=== PATIENT | female | born 2000 | race Caucasian/White ===

== ENCOUNTER 2023-07-08 12:19 | Emergency (ER) | payer OTHER, SELFPAY ==
[2023-07-08 12:31] VITALS: BP 117/54
[2023-07-08] MEDS: OMNIPAQUE 50 ML PO (12:46)
[2023-07-08 12:50] LABS: Urine Albumin Negative (Neg - Trace); Urine Bilirubin Negative (Negative); Urine Character Clear (Clear); Urine Color Yellow; Urine Glucose Negative (Negative); Urine Ketone Negative (Negative); Urine Leukocyte Negative (Negative); Urine Nitrite Negative (Negative); Urine Occult Blood Negative (Negative); Urine Specific Gravity 1.015 (<1.030); Urine Urobilinogen Negative (Neg - 1+)
[2023-07-08 12:55] LABS: % Basophils 0.3 % (0-2); % Eosinophils 0.5 % (0-6); % Immature Granulocytes 0.3 % (0-0.5); % Lymphocytes 3.9 % (20.5-51.1); % Monocytes 3.6 % (1.7-9.3); % Neutrophils 91.4 % (42.2-75.2); Absolute Eosinophils 0.1 10^3/uL (0-0.7); Absolute Lymphocytes 0.5 10^3/uL (1.2-3.4); Absolute Monocytes 0.4 10^3/uL (0.1-0.6); Absolute Neutrophils 10.6 10^3/uL (1.4-6.5); Hematocrit 39.9 % (37.0-47.0); Hemoglobin 13.2 g/dL (12.0-16.0); Mean Corp Hgb Conc. 33.1 g/dL (33.0-37.0); Mean Corpuscular Hgb 30.8 pg (27.0-31.0); Mean Platelet Volume 9.3 fL (7.4-10.4); Nucleated Red Blood Cells % 0 %; Platelet Count 267 10^3/uL (130-400); Red Blood Cell Count 4.29 10^6/uL (4.20-5.40); Red Cell Dist. Width 11.9 % (11.5-14.5); White Blood Cell Count 11.6 10^3/uL (4.8-10.8)
[2023-07-08 13:00] LABS: HCG, Serum Qualitative Screen Negative
[2023-07-08 13:07] LABS: ALT (SGPT) 19 U/L (0-35); AST (SGOT) 25 U/L (14-36); Albumin 4.4 g/dl (3.5-5.0); Alkaline Phosphatase 56 U/L (38-126); Blood Urea Nitrogen 15 mg/dl (7-17); Calcium 9.5 mg/dl (8.4-10.2); Carbon Dioxide 22 mmol/L (22-30); Chloride 103 mmol/L (98-107); Glucose 97 mg/dl (70-99); Potassium 4.4 mmol/L (3.5-5.1); Sodium 132 mmol/L (135-145); Total Bilirubin 0.6 mg/dl (0.2-1.3); Total Protein 7.3 g/dl (6.3-8.2); eGFR > 60.00
--- NOTE | 2023-07-08 13:36 | ED.GENMED ---
History of Present Illness
<Pham Ken PA-C - Last Filed: 07/08/23 17:51>
General
Chief Complaint: Abdominal Pain
Source: patient and family
Exam Limitations: none
Time Seen by Provider: 07/08/23 13:27
Nursing documentation reviewed up to this point in time: agreed with
Travel History
Have you had any contact with someone who has COVID-19?: No
Do you have any symptoms of coronavirus? Fever > 100 degrees, chills, cough, shortness of breath, sore throat, loss of taste or smell, muscle aches, or headache?: No
History of Present Illness
History of Present Illness:
Patient is a 23-year-old female with no significant past medical history presenting to the emergency department with mom for evaluation of abdominal pain. Patient states abdominal pain started yesterday afternoon and was located just superior to
umbilicus. She states pain is now located more on the right side with some radiation around to the back. She states pain is severe, sharp, and constant. She endorses anorexia, diarrhea, nausea, and multiple episodes of vomiting today. She
reports subjective fever. She denies any urinary symptoms. No chest pain or shortness of breath. She denies any recent travel. No recent antibiotic use or hospitalization. She denies any recent seafood
Patient's last menstrual period was about 3 weeks ago. Patient has no history of abdominal surgeries.
Past History
<Pham Ken PA-C - Last Filed: 07/08/23 17:51>
Past History
ED Past Medical History: None
ED Past Surgical History: None
Social History
Tobacco: Non-smoker
Drug: None
Phy Exam
<Pham Ken PA-C - Last Filed: 07/08/23 17:51>
Physical Exam
Physical Exam:
General: Moderately uncomfortable due to pain, vomiting on initial examination
Vitals: Vital signs are stable, afebrile
HEENT: Atraumatic, normocephalic; pupils equal round and reactive light bilaterally, protecting airway, uvula midline
Neck: appears supple, trachea mid
CV: Regular rate and rhythm, heart sounds normal, no evidence of cyanosis
Resp: No evidence of respiratory distress, lungs clear bilaterally
Abd: Soft, moderately tender in right lower/right mid abdomen, some mild tenderness in epigastric region, non-distended; no CVA tenderness
Extremities: No deformities, no evidence of cyanosis or edema; DP pulses palpable and equal bilaterally
Neuro: alert and oriented; grossly intact
Psych: Normal affect
Skin: Intact, no rashes
Course
<Pham Ken PA-C - Last Filed: 07/08/23 17:51>
Orders/Labs/Results
Orders:
Orders
07/08/23 12:33
Test Result ONCE
07/08/23 12:42
Complete Blood Count/With Diff Urgent
Comprehensive Metabolic Panel Urgent
HCG, Serum Qualitative Screen Urgent
Lipase Urgent
Urinalysis Reflex To Culture Urgent
Date Specimen was Collected: 07/08/23
Time Specimen was Collected: 12:32
07/08/23 12:44
Iohexol [Omnipaque] 50 ml .ROUTE .[facility]
07/08/23 12:46
Iohexol [Omnipaque] See Protocol PO NOW STA
07/08/23 12:48
CT Abd/pel W Iv And Oral Contr Urgent
Comment:
Reason For Exam: RLQ pain
07/08/23 13:35
0.9% Sodium Chloride 1000 ml [Nss] 1,000 ml IV BOLUS
Ketorolac [Toradol] 15 mg IV NOW STA
Ondansetron Injectable [Zofran] 4 mg IV NOW STA
07/08/23 16:15
US Pelvis W Transvag Combined Urgent
Reason For Exam: Right lower abdominal pain; r/o torsion
Abnormal Lab Results
07/08/23
12:42
WBC 11.6 H 10^3/uL
(4.8-10.8)
Absolute Neuts (auto) 10.6 H 10^3/uL
(1.4-6.5)
Absolute Lymphs (auto) 0.5 L 10^3/uL
(1.2-3.4)
Neutrophils % 91.4 H %
(42.2-75.2)
Lymphocytes % 3.9 L %
(20.5-51.1)
Sodium 132 L mmol/L
(135-145)
07/08/23 12:42
07/08/23 12:42
Vital Signs
Initial and Last Documented VS:
Initial Vital Signs
Temp Pulse Resp BP Pulse Ox
98.2 F 87 16 117/54 98
07/08/23 12:31 07/08/23 12:31 07/08/23 12:31 07/08/23 12:31 07/08/23 12:31
Last Documented Vital Signs
Temp Pulse Resp BP Pulse Ox
98.2 F 78 16 92/59 98
07/08/23 12:31 07/08/23 17:43 07/08/23 12:31 07/08/23 17:43 07/08/23 12:31
<Belia Cline MD - Last Filed: 07/08/23 17:35>
Orders/Labs/Results
Orders:
Orders
07/08/23 12:33
Test Result ONCE
07/08/23 12:42
Complete Blood Count/With Diff Urgent
Comprehensive Metabolic Panel Urgent
HCG, Serum Qualitative Screen Urgent
Lipase Urgent
Urinalysis Reflex To Culture Urgent
Date Specimen was Collected: 07/08/23
Time Specimen was Collected: 12:32
07/08/23 12:44
Iohexol [Omnipaque] 50 ml .ROUTE .[facility]
07/08/23 12:46
Iohexol [Omnipaque] See Protocol PO NOW STA
07/08/23 12:48
CT Abd/pel W Iv And Oral Contr Urgent
Comment:
Reason For Exam: RLQ pain
07/08/23 13:35
0.9% Sodium Chloride 1000 ml [Nss] 1,000 ml IV BOLUS
Ketorolac [Toradol] 15 mg IV NOW STA
Ondansetron Injectable [Zofran] 4 mg IV NOW STA
07/08/23 16:15
US Pelvis W Transvag Combined Urgent
Reason For Exam: Right lower abdominal pain; r/o torsion
Abnormal Lab Results
07/08/23
12:42
WBC 11.6 H 10^3/uL
(4.8-10.8)
Absolute Neuts (auto) 10.6 H 10^3/uL
(1.4-6.5)
Absolute Lymphs (auto) 0.5 L 10^3/uL
(1.2-3.4)
Neutrophils % 91.4 H %
(42.2-75.2)
Lymphocytes % 3.9 L %
(20.5-51.1)
Sodium 132 L mmol/L
(135-145)
07/08/23 12:42
07/08/23 12:42
Vital Signs
Initial and Last Documented VS:
Initial Vital Signs
Temp Pulse Resp BP Pulse Ox
98.2 F 87 16 117/54 98
07/08/23 12:31 07/08/23 12:31 07/08/23 12:31 07/08/23 12:31 07/08/23 12:31
Last Documented Vital Signs
Temp Pulse Resp BP Pulse Ox
98.2 F 78 16 92/59 98
07/08/23 12:31 07/08/23 17:43 07/08/23 12:31 07/08/23 17:43 07/08/23 12:31
<Pham Ken PA-C - Last Filed: 07/08/23 17:51>
MDM/Problems Addressed
Differential Diagnosis Includes:
Not limited to: Gastroenteritis, appendicitis, ovarian cyst, ovarian torsion, cholecystitis, biliary colic, kidney stone, UTI
MDM/Problems Addressed:
Patient is a 23-year-old female presenting for evaluation of abdominal pain with associated nausea, vomiting, diarrhea, anorexia. Symptoms started yesterday been constant since. Vital stable, afebrile. Physical exam as above. She has moderately
tender right lower and mid abdomen with some epigastric tenderness, as well. She is actively vomiting on my initial examination. Labs pain in triage show mild leukocytosis with a white blood cell count of 11.6, which is nonspecific. Otherwise no
clinically significant abnormalities. test is negative. Urine shows no evidence of blood or infection. Will check CT of abdomen with oral contrast. Toradol, Zofran, fluids. Will monitor closely reassess
Patient with significant improvement in nausea following Zofran. She does state pain is improved after Toradol but still somewhat present. She declines any further medication at this time would like to wait till after scan.
CT scan does not show any concrete evidence of appendicitis but somewhat limited view. Although pain is improved since arriving to emergency department�she is still in some level of discomfort. Will get pelvic ultrasound to rule out any ovarian
etiology.
Pelvic ultrasound shows no evidence of ovarian torsion or other pelvic etiology.
5:35PM: Into reassess patient at bedside. She does appear in less distress than upon arrival to emergency department. Abdomen remains soft with some tenderness in right lower quadrant. Discussed negative CT scan and ultrasound with patient and
patient's mom. Although did also discuss the possibility that appendicitis cannot completely be excluded at this time. Shared decision making with both patient and patient's mom who are comfortable with watchful waiting and discharge at this time.
Lengthy discussion with both of them regarding return precautions including fever, persistent/worsening abdominal pain, persistent nausea/vomiting, chills, severe fatigue. They will return with any worsening. Prescription for Zofran sent. Stable
for discharge.
Chronic conditions affecting care:
N/A
Acute Exacerbation and/or Progression of Chronic Illness:
N/A
<Pham Ken PA-C - Last Filed: 07/08/23 17:51>
*Radiology
Radiology exam reviewed: preliminary read by ED provider and radiology read reviewed
*Pulse Oximetry
Patient hypoxic: no
*EKG
Interpreted by ED Provider?: NA
*Legal Practice Manager Interpretation
Rate: Legal Practice Manager- N/A
*Critical Care Note
Total Time (30-74mins, 75-104mins- exclusive of procedures): Not Applicable
ED Attending Note
<Pham Ken PA-C - Last Filed: 07/08/23 17:51>
-
Portions of this chart may have been created with voice recognition software.� Occasional wrong word or��sound alike� substitutions may have occurred due to the inherent limitations of voice recognition software.
<Belia Cline MD - Last Filed: 07/08/23 17:35>
ED Attending Note
Patient seen and examined by attending physician: Yes
I performed the substantive portion of visit, reviewed & personally made and approve the management plan that is documented in note by myself or HARVEY.: Yes
ED Attending Note:
23-year-old female who says she was feeling perfectly well until the gradual onset of periumbilical pain is gradually become more pronounced and also associated in the right lower quadrant. She notes associated nausea and nonbloody vomiting,
unaware of fever. She also has loose stool. She denies pelvic pain, vaginal ear discharge, UTI symptoms, chest pain, shortness of breath. On exam, patient has mild tenderness to palpation across lower abdomen including right lower quadrant, no
rebound, no guarding. Differential diagnosis does include appendicitis however less likely given lack of significant abdominal findings, CT scan that is not suggestive of, no fever, etc. Long discussion with patient and mother who is at bedside
that appendicitis is still a possibility. We will get a pelvic ultrasound, continue to observe patient, repeat exam that that that may be candidate for watchful waiting at home with the understanding that if her symptoms were to worsen or change
she would need to return the emergency department immediately.
Discharge Plan
Departure
Patient Disposition: Home (Routine Discharge)
Date of Disposition: 07/08/23
Time of Disposition: 17:40
Patient with high blood pressure during this ER visit?: No
Condition: Good
Covid-19: Not Applicable
Discharge Problem:
Abdominal pain, Nausea and vomiting
Instructions: Nausea and Vomiting, Adult (DC), Abdominal Pain, Adult ED
Prescriptions:
New
ondansetron 4 mg tablet,disintegrating
4 mg PO Q8H PRN (Reason: nausea and vomiting) Qty: 10 0RF
Referrals:
Martinez Swenson, [Family Provider] - Follow up in 5-7 days
Activity Restrictions/Additional Instructions:
-Return to the emergency department with any high fevers, persistent/worsening abdominal pain, persistent nausea, vomiting, lack of appetite, chills, extreme fatigue, worsening in current symptoms
-As discussed- it is very important to closely monitor symptoms and return to the emergency department with any worsening
-A prescription for zofran has been sent to your pharmacy. You can take this every 8 hours as needed for nausea. I recommend a bland diet and advance as tolerated.
-Stay well hydrated. Take motrin as needed for discomfort.
-Follow-up with primary care for further evaluation/management
Interventions
Interventions:
*Risk Screen - Suicide Last Done: 07/08/23 12:27
*General Assessment Last Done: 07/08/23 12:27
*Neglect/Abuse Screening Last Done: 07/08/23 12:27
*Nursing Disposition Last Done: 07/08/23 17:43
SF-Zjmenw-Bdqdqblzmh Assessment Last Done: 07/08/23 14:35
Discharge Date and Time
Print Language: BELARUSIAN
[2023-07-08] MEDS: NSS 1000 IV (13:53)
[2023-07-08] MEDS: TORADOL 15 MG IV (13:54)
[2023-07-08] MEDS: ZOFRAN 4 MG IV (13:55)
[2023-07-08 15:28] LABS: Lipase 40 U/L (23-300)
[2023-07-08 17:41] VITALS: BP 92/59
--- NOTE | 2023-07-08 17:42 | EDRN ---
Pt taken to RP by NIGEL bonilla.
[2023-07-08 17:43] VITALS: BP 92/59
== END 2023-07-08 17:53 | disposition home or self-care (01) ==
LOC: EMR 12:19
PROVIDERS: Student in an Organized Health Care Education/Training Program; EMERGENCY PHYSICIAN Emergency Medicine; FAMILY PHYSICIAN Family Medicine
DX: R10.9 Unspecified abdominal pain (principal); R11.2 Nausea with vomiting, unspecified
CPT/HCPCS: 99284; 96374; 96375; 96361; 74177; 76830; 76856; 80053; 81003; 83690; 84703; 85025; Q9967

== ENCOUNTER 2023-07-08 23:30 | Emergency (ER) | payer OTHER, SELFPAY ==
[2023-07-08 23:43] VITALS: BP 88/52
[2023-07-08 23:52] VITALS: BMI 20.3
[2023-07-08 23:54] VITALS: BP 99/59
[2023-07-09 01:02] VITALS: BP 102/55
--- NOTE | 2023-07-09 01:04 | ED.GENMED ---
History of Present Illness
General
Chief Complaint: Abdominal Pain
Source: patient
Exam Limitations: none
Time Seen by Provider: 07/09/23 00:20
Travel History
Have you had any contact with someone who has COVID-19?: No
Do you have any symptoms of coronavirus? Fever > 100 degrees, chills, cough, shortness of breath, sore throat, loss of taste or smell, muscle aches, or headache?: No
History of Present Illness
History of Present Illness:
This is a 23 year old female that comes in with c/o right lower abd pain. Patient was seen here earlier today and had a CT and Pelvic Ultrasound. It was felt that the contrast did not get all through the bowel. They were told that if the pain
continued for the patient to return for repeat CT to r/o appendicitis. Patient states that she went home and was able to sleep about 1 hour and then awoke crying. States that she was vomiting at home. States that she had chills, some chest
discomfort with vomiting, SOB, nausea, headache, dizziness. Denies any fever, diarrhea, urinary burning.
Past History
Past History
ED Past Medical History: Asthma
ED Past Surgical History: None
Social History
Tobacco: Non-smoker
Alcohol: None
Drug: None and Marijuana
Personal: Single
Living: with family
Review of Systems
Review of Systems
All Other Systems: ROS reviewed and negative except as documented in HPI and ROS
Constitutional: Reports chills; Denies fever
EENT: Reports no symptoms
Respiratory: Reports cough and trouble breathing
Cardiac: Reports chest pain (with vomiting)
ABD/GI: Reports abdominal pain, nausea and vomiting; Denies diarrhea
: Reports no symptoms; Denies dysuria, frequency or urgency
Musculoskeletal: Reports no symptoms
Skin: Reports no symptoms
Neurological: Reports dizzy and headache
Psychiatric: Reports no symptoms
Phy Exam
General Physical Exam
General Presentation: no apparent distress
General age: appears stated age
General Skin: warm and dry
General Habitus: normal
General Mental: alert
General Hydration: appears well hydrated
ENT Exam
ENT Exam: TM's normal, pharynx normal and neck supple
Eye Exam
Eye Exam: EOMI
Cardiovascular Exam
Cardiovascular Exam: regular rate/rhythm, no edema, no murmur and normal peripheral pulses
Pulmonary Exam
Pulmonary Exam: lungs clear, no respiratory distress, no rales, chest non tender, no crackles, no rhonchi, no wheezing and no cough
Gastrointestinal Exam
Gastrointestinal Exam: soft, no organomegaly, no pulsatile mass, non distended, tender (Right sided abd tenderness with palpation) and other (Hypoactive bowel sounds)
Musculoskeletal Exam
Musculoskeletal Exam: full ROM and no edema
Skin Exam
Skin Exam: normal color, warm/dry, no rash and no petechia
Psychiatric Exam
Psychiatric Exam: normal mood/affect
Course
Orders/Labs/Results
Orders:
Orders
07/09/23 01:02
Iohexol [Omnipaque] See Protocol PO NOW STA
07/09/23 01:04
CT Abd/pel (oral only)-[facility] Only Urgent
Comment: Please do delayed imaging
Reason For Exam: Right lower abd pain
0.9% Sodium Chloride 1000 ml [Nss] 1,000 ml IV BOLUS
Ondansetron Injectable [Zofran] 4 mg IV NOW STA
07/09/23 01:11
COVID-19 Antigen Urgent
Source: Nasal Swab
Complete Blood Count/With Diff Urgent
Comprehensive Metabolic Panel Urgent
Lactic Acid Urgent
Influenza A+B Rapid Molecular Urgent
JAMAR Source: Nasal Swab
Specimen Description:
07/09/23 02:16
Iohexol [Omnipaque] 50 ml .ROUTE .[facility] [[email or web address]
07/09/23 02:38
Ketorolac [Toradol] 30 mg .ROUTE .[facility]
Ondansetron Injectable [Zofran] 4 mg .ROUTE .[facility]
07/09/23 02:41
Ketorolac [Toradol] 30 mg IV NOW STA
Ondansetron Injectable [Zofran] 4 mg IV NOW STA
Abnormal Lab Results
07/09/23
01:11
RBC 3.85 L 10^6/uL
(4.20-5.40)
Hgb 11.9 L g/dL
(12.0-16.0)
Hct 34.0 L %
(37.0-47.0)
Absolute Neuts (auto) 6.6 H 10^3/uL
(1.4-6.5)
Absolute Lymphs (auto) 0.3 L 10^3/uL
(1.2-3.4)
Neutrophils % 90.0 H %
(42.2-75.2)
Lymphocytes % 3.4 L %
(20.5-51.1)
Sodium 130 L mmol/L
(135-145)
Glucose 101 H mg/dl
(70-99)
07/09/23 01:11
07/09/23 01:11
H/H slightlly low. Glucose nonfasting. Sodium slightly low.
Vital Signs
Initial and Last Documented VS:
Initial Vital Signs
Temp Pulse Resp BP Pulse Ox
98.3 F 88 18 88/52 100
07/08/23 23:43 07/08/23 23:43 07/08/23 23:43 07/08/23 23:43 07/08/23 23:43
Last Documented Vital Signs
Temp Pulse Resp BP Pulse Ox
98.4 F 70 25 98/51 98
07/09/23 04:20 07/09/23 03:37 07/09/23 03:37 07/09/23 04:17 07/09/23 03:37
MDM/Problems Addressed
Differential Diagnosis Includes:
Gi viral syndrome. Appendicitis
MDM/Problems Addressed:
This is a 23 year old female that comes in with c/o continued abd pain. Patient was seen here earlier for right sided abd pain. State that she had an US and CT scan but was told that if the pain got worse to come back. Contrast did not make it
through the bowel so it was hard to see the appendix.
Will check labs, and repeat the CT scan.
Chronic conditions affecting care:
NA
Acute Exacerbation and/or Progression of Chronic Illness:
NA
*Pulse Oximetry
Patient hypoxic: no
*EKG
Interpreted by ED Provider?: NA
Rate: EKG- N/A
*Hydrogen Plant Operator Interpretation
Rate: Hydrogen Plant Operator- N/A
*Critical Care Note
Total Time (30-74mins, 75-104mins- exclusive of procedures): Not Applicable
ED Attending Note
-
Portions of this chart may have been created with voice recognition software.� Occasional wrong word or��sound alike� substitutions may have occurred due to the inherent limitations of voice recognition software.
Discharge Plan
Departure
Patient Disposition: Home (Routine Discharge)
Date of Disposition: 07/09/23
Time of Disposition: 05:46
Patient with high blood pressure during this ER visit?: No
Condition: Good
Covid-19: Negative COVID-19
Discharge Problem:
Abdominal pain
Instructions: Abdominal Pain
Prescriptions:
No Action
ondansetron 4 mg tablet,disintegrating
4 mg PO Q8H PRN (Reason: nausea and vomiting) Qty: 10 0RF
desogestrel-ethinyl estradiol [Apri] 0.15-0.03 mg Tablet
1 tab PO DAILY PRN (Reason: control)
sertraline [Zoloft] 50 mg Tablet
50 mg PO DAILY
spironolactone 50 mg Tablet
50 mg PO HS
Referrals:
Martinez Swenson, [Family Provider] - Follow up in 2-3 days
Activity Restrictions/Additional Instructions:
As discussed, your blood work shows your Hgb is slightly low. Your sodium is also slightly low. Please try eating some canned soup or boxed food as this will help increase your sodium level. Please limit your Water intake to 6-8os glasses daily as
not to flush out your sodium. You are negative for COVID and Influenza. Your CT is normal. This may just be a viral illness. Follow up with the family doctor. Tylenol or Ibuprofen for pain or fever. IF YOU HAVE ANY OTHER CONCERNS PLEASE RETURN TO
THE EMERGENCY ROOM
Interventions
Interventions:
*Risk Screen - Suicide Last Done: 07/08/23 23:43
*General Assessment Last Done: 07/08/23 23:51
*Neglect/Abuse Screening Last Done: 07/08/23 23:43
*ED COVID-19 Vaccine History Last Done: 07/08/23 23:51
TI-[facility]-Psnixskpwp Assessment Last Done: 07/08/23 23:51
Discharge Date and Time
Print Language: GERMAN
[2023-07-09] MEDS: NSS 1000 IV (01:15)
[2023-07-09] MEDS: OMNIPAQUE 50 ML PO (01:16)
[2023-07-09] MEDS: ZOFRAN 4 MG IV ×2 (01:20→02:44)
[2023-07-09 01:21] LABS: % Basophils 0.3 % (0-2); % Eosinophils 0.1 % (0-6); % Immature Granulocytes 0.4 % (0-0.5); % Lymphocytes 3.4 % (20.5-51.1); % Monocytes 5.8 % (1.7-9.3); Absolute Lymphocytes 0.3 10^3/uL (1.2-3.4); Absolute Monocytes 0.4 10^3/uL (0.1-0.6); Absolute Neutrophils 6.6 10^3/uL (1.4-6.5); Hemoglobin 11.9 g/dL (12.0-16.0); Mean Corpuscular Hgb 30.9 pg (27.0-31.0); Mean Corpuscular Volume 88.3 fL (81.0-99.0); Mean Platelet Volume 9.4 fL (7.4-10.4); Nucleated Red Blood Cells % 0 %; Platelet Count 220 10^3/uL (130-400); Red Blood Cell Count 3.85 10^6/uL (4.20-5.40); Red Cell Dist. Width 12.1 % (11.5-14.5); White Blood Cell Count 7.4 10^3/uL (4.8-10.8)
[2023-07-09 01:30] VITALS: BP 100/60
[2023-07-09 01:36] LABS: ALT (SGPT) 21 U/L (0-35); AST (SGOT) 25 U/L (14-36); Albumin 3.7 g/dl (3.5-5.0); Alkaline Phosphatase 55 U/L (38-126); Blood Urea Nitrogen 11 mg/dl (7-17); Carbon Dioxide 23 mmol/L (22-30); Chloride 105 mmol/L (98-107); Estimated Creatinine Clearance > 125 ml/min; Glucose 101 mg/dl (70-99); Potassium 3.9 mmol/L (3.5-5.1); Sodium 130 mmol/L (135-145); Total Bilirubin 0.4 mg/dl (0.2-1.3); Total Protein 6.4 g/dl (6.3-8.2); eGFR > 60.00
[2023-07-09 01:37] LABS: Lactic Acid 0.7 mmol/L (0.7-2.0)
[2023-07-09 01:42] LABS: COVID-19 Antigen Negative (Negative)
[2023-07-09 02:00] VITALS: BP 101/61
[2023-07-09 02:30] VITALS: BP 100/53
[2023-07-09] MEDS: TORADOL 30 MG IV (02:42)
[2023-07-09 03:08] VITALS: BP 103/61
[2023-07-09 04:17] VITALS: BP 98/51
== END 2023-07-09 05:40 | disposition home or self-care (01) ==
LOC: EMR 23:30
PROVIDERS: Clinical Nurse Specialist Family Health; EMERGENCY PHYSICIAN Emergency Medicine; FAMILY PHYSICIAN Family Medicine
DX: R10.9 Unspecified abdominal pain (principal)
CPT/HCPCS: 99284; 96374; 96375; 96376; 96361; 74176; 74177; 76830; 76856; 80053; 81003; 83605; 83690; 84703; 85025; 87502; 87811; Q9967